=== PATIENT | female | born 1955 | race Hispanic/Latino ===

== ENCOUNTER 2017-10-31 05:54 | Day surgery (SDC) | payer OTHER ==
[2017-09-26 08:29] VITALS: BMI 30.2
[2017-10-31] MEDS ORDERED: ceFAZolin IV 1 gm in Dextrose 1 GM/50 ML BAG IVPB ONE ×2 (07:48→08:19)
[2017-10-31] MEDS ORDERED: Midazolam 2 MG/2 ML VIAL ONE ×2 (07:50→08:07)
[2017-10-31] MEDS ORDERED: Propofol 10 mg/ml Inj (20 ML) ONE (07:51)
[2017-10-31] MEDS ORDERED: Lactated Ringer's 1,000 ML IV ONE ×3 (08:01→09:47)
[2017-10-31] MEDS ORDERED: Lidocaine 2% w Epi 1:100,000 Inj IJ ONE (08:34)
[2017-10-31] MEDS ORDERED: Bupivacaine HCl 0.25% PF (10 ml) Inj ONE (09:18)
[2017-10-31] MEDS ORDERED: Morphine 1 mg/ml preservative-free Inj(Duramorph) ONE (09:19)
[2017-10-31] MEDS ORDERED: MethylPREDNISolone Depo 40 mg/ml Inj ONE (09:19)
[2017-10-31 11:23] VITALS: RESP 16
[2017-10-31 12:22] VITALS: BP 141/70; PULSE 88; TEMP 97.2; O2SAT 99
--- NOTE | 2017-10-31 19:18 | OP ---
PROCEDURE DATE: 10/31/2017 PREOPERATIVE DIAGNOSES: Internal derangement of the left knee, tear of the medial meniscus, and osteochondritis of medial femoral condyle. POSTOPERATIVE DIAGNOSES: 1. Severe grade 3 osteochondritis of the weightbearing portion of medial femoral condyle. 2. Tear of the posterior horn of the medial meniscus. 3. Severe chondromalacia of the patella. PROCEDURES: 1. Diagnostic arthroscopy. 2. Chondroplasty of medial femoral condyle and lateral tibial plateau. 3. Chondroplasty of the patella. 4. Microfracture of the weightbearing portion of the medial femoral condyle. 5. Local anesthesia block with Marcaine and Duramorph. DESCRIPTION OF PROCEDURE: Prior to the procedure, risks and benefits of the surgery, prognosis and complications explained including infection, cardiac, pulmonary, recurrence, need for future surgery, permanent weakness, permanent numbness, possible loss of life and limb, etc. The patient fully understood and agreeable. All the questions were answered. The patient was brought to the operating room and the patient is told that she had evidence of degenerative joint disease of the knee with tear of the medial meniscus. She may need future surgical procedures. She also told that the current procedure may not give her complete relief and she will be needing viscosupplementation and possible partial or total knee replacement, arthroplasty. The patient was brought to the operating room. Left knee was identified as the knee to be operated. Left knee was prepped and draped in the usual manner and the diagnostic arthroscopy was done through the lateral portal. Arthroscope was introduced into the joint and severe grade 3 chondromalacia of the patella was noted towards the medial facet. Chondroplasty was done. Arthroscope was brought to the lateral gutter. No evidence of loose bodies were found. Arthroscope was brought into the medial joint line. Medial meniscus was probed in its entirety. Tear at the posterior horn of the medial meniscus was seen and partial medial meniscectomy was done. Further probing did not reveal any further tearing of the medial meniscus. A severe grade 3 chondromalacia and osteochondritis of the weightbearing portion of the medial femoral condyle was seen. Initial debridement was done with the shaver, then microfracture was done using the chondral picks. blood was seen, found to be emanating from the chondral pick hole. At this point, arthroscope was brought into the intercondylar notch. Anterior cruciate ligament was found to be slightly freed, but intact. Under arthroscopic guidance, the anterior posterior drawer signs were negative. Racahel sign was negative. At this point, using the figure-of-4 position, arthroscope was brought in to the lateral joint line. Lateral meniscus was probed in its entirety and was found to be intact. Grade 2 chondromalacia of the lateral tibial plateau was seen and chondroplasty was done. At this point, the joint was thoroughly irrigated. Arthroscopy portals were closed using 0 nylon suture. Marcaine, Duramorph and Depo-Medrol were injected into the joint. The compression dressing was applied. The patient tolerated the procedure well. Left the operating room to the recovery room in a satisfactory condition. Marina Gaston MD
== END 2017-10-31 12:35 | disposition home or self-care (01) ==
LOC: C.SDS 05:54
PROVIDERS: ATTEND Orthopaedic Surgery
DX: M23.222 Derangement of posterior horn of medial meniscus due to old tear or injury, left knee (principal); M93.962 Osteochondropathy, unspecified, left lower leg; M94.262 Chondromalacia, left knee
CPT/HCPCS: 29880; 97116; 97161; G8978; G8979; G8980; J0171; J0690; J1030; J1100; J1885; J2001; J2250; J2270; J2405; J2704; J3010; J7120

== ENCOUNTER 2018-10-23 05:47 | Day surgery (SDC) | payer OTHER ==
[2018-10-04 08:07] VITALS: BMI 29.7
[2018-10-23] MEDS ORDERED: ceFAZolin 1 gm in NS 1 GM/100 ML BAG IVPB ONE (06:36)
[2018-10-23] MEDS ORDERED: MethylPREDNISolone Depo 40 mg/ml Inj ONE ×2 (06:36→09:29)
[2018-10-23] MEDS ORDERED: Morphine 1 mg/ml preservative-free Inj(Duramorph) ONE (06:37)
[2018-10-23] MEDS ORDERED: Bupivacaine HCl 0.5% PF (30 ml) Inj ONE (06:37)
[2018-10-23] MEDS ORDERED: Lidocaine/Epinephrine 1% 1:100000 10 ML IJ ONE (06:37)
[2018-10-23] MEDS ORDERED: EPINEPHrine 1:1000 Nasal Sol(30mL) ONE (07:42)
--- NOTE | 2018-10-23 07:47 | CP.SDSHP ---
Same Day Surgery H & P - History Proposed Procedure: Right knee arthroscopy possible partial meniscectomy, chondroplasty, synovectomy related procedures Pre-Op Diagnosis: Right knee medial meniscal tear, chondromalacia - Previous Medical/Surgical History Endocrine/Metabolic: Thyroid Disease Previous Surgical History: Left knee arthroscopy x 2, breast biopsy, c section x2 - Allergies Allergies: Allergies No Known Allergies Allergy (Verified 10/04/18 08:05) - Physical Exam Vital Signs: Vital Signs 10/23/18 06:08 Temperature 98 F Pulse Rate 83 Respiratory 18 Rate Blood Pressure 148/81 O2 Sat by Pulse 99 Oximetry Mental Status: Alert & Oriented x3 Heart: WNL Lungs: WNL GI: WNL - {Optional Preform as Required} Ortho: Other (+ROM ankle/toes, sensation intact, TTP to knee mild, no effusion) Other Pertinent Findings: atient Name / ID : PRINCE South / [id number]. Exam Date : 08/11/2018 11:02:53 ( Approved ). Study Comment : Sex / Age : F / 63Y. Creator : Mikayla Yung. Dictator : Shade Caceres MD. Home Advisor : Treasury Analyst : Shade Caceres MD. Approver2 : Report Date : 08/11/2018 11:26:33. My Comment : . Date of service: 08/11/2018. PROCEDURE: MRI Right Knee. HISTORY: Pain. COMPARISON: None available. TECHNIQUE: Multiecho multiplanar sequences were performed through the right knee. FINDINGS: ANTERIOR CRUCIATE LIGAMENT:: No acute tear identified. POSTERIOR CRUCIATE LIGAMENT:: No acute tear identified. MEDIAL MENISCUS:: Limited full-thickness tear anteromedial portion of the medial meniscus. LATERAL MENISCUS:: No articular tear or significant degenerative pattern within the body or anterior/posterior horns. MEDIAL COLLATERAL LIGAMENT:: Intact without acute tear. LATERAL COLLATERAL LIGAMENT COMPLEX:: Intact without acute tear. QUADRICEPS TENDON:: Trace distal tendinosis. No acute tear appreciated. PATELLAR TENDON:: Unremarkable appearing. CARTILAGE:: Moderate to severe medial lateral femorotibial compartment chondromalacia with severe patellofemoral chondromalacia. Subchondral edema is appreciated at the lateral portion of the lateral femoral condyle as well as at the upper portion of the patella. JOINT FLUID:: No significant joint effusion appreciated throughout. OSSEOUS STRUCTURES:: Small bone contusion superomedial patella. OTHER FINDINGS: None. IMPRESSION: 1. Medial meniscal tear. 2. Trace distal quadriceps tendinosis. 3. Advanced osteoarthritis, tricompartmental seen worst at the patellofemoral articulation with related subchondral edema at the patella. Lateral femorotibial compartment is next greatest affected. 4. Small bone contusion superomedial patella. - Impression Impression: 63F with right knee meniscal tear for arthroscopy Pt. Evaluated Today:Candidate for Anesthesia & Procedure: Yes - Date & Time Date: 10/23/18 Time: 07:50 Short Stay Discharge - Short Stay Discharge Admitting Diagnosis/Reason for Visit: INTERNAL DERANGEMENT RIGHT KNEE Disposition: HOME/ ROUTINE Past Patient History - Past Medical History & Family History Past Medical History?: Yes - Past Social History Smoking Status: Never Smoked - CARDIAC Hx Cardiac Disorders: Yes Hx Hypertension: Yes - PULMONARY Hx Respiratory Disorders: Yes Hx Bronchitis: Yes (2016-NOT HOSPITALIZED) - NEUROLOGICAL Hx Neurological Disorder: No - HEENT Hx HEENT Problems: Yes Hx Sinusitis: Yes Other/Comment: 09/22/17-SINUS INFECTION-PT. ON ANTIBIOTIC X 15 DAYS. - RENAL Hx Chronic Kidney Disease: No - ENDOCRINE/METABOLIC Hx Endocrine Disorders: Yes Hx Hypothyroidism: Yes - HEMATOLOGICAL/ONCOLOGICAL Hx Blood Disorders: No - INTEGUMENTARY Hx Dermatological Problems: Yes Other/Comment: HX: ROSACEA - MUSCULOSKELETAL/RHEUMATOLOGICAL Hx Musculoskeletal Disorders: Yes Hx Osteoarthritis: Yes Other/Comment: HX: "PINCHED NERVES IN NECK". HX: RIGHT SHOULDER BURSITIS. HX: LEFT KNEE ARTHROSCOPY"CLEANED IT OUT" 2003. HX: SCIATICA-LEFT SIDE - GASTROINTESTINAL Hx Gastrointestinal Disorders: Yes Hx Gastritis: Yes Hx Irritable Bowel: Yes Other/Comment: HX: HIATAL HERNIA. HX: IBS - GENITOURINARY/GYNECOLOGICAL Hx Genitourinary Disorders: No - PSYCHIATRIC Hx Psychophysiologic Disorder: Yes Hx Anxiety: Yes - SURGICAL HISTORY Hx Surgeries: Yes Hx Arthroscopy: Yes (LEFT KNEE 2003) Hx Breast Biopsy: Yes (X3- NO CANCER) Hx Section: Yes (x2) Hx Dilation and Curettage: Yes (2009) Other/Comment: HX: COLON POLYPECTOMY - ANESTHESIA Hx Anesthesia: Yes Hx Anesthesia Reactions: No Hx Malignant Hyperthermia: No Has any member of the family had a problem w/ anesthesia?: No
[2018-10-23] MEDS ORDERED: Propofol 10 mg/ml Inj (20 ML) ONE (07:58)
[2018-10-23] MEDS ORDERED: Midazolam 2 MG/2 ML VIAL ONE (07:58)
[2018-10-23] MEDS ORDERED: ceFAZolin 1 gm FROZEN Premix 1 GM/50 ML ML IVPB ONE (08:32)
[2018-10-23] MEDS ORDERED: Neostigmine Methylsulfate 3mg/3ml Syringe IV ONE (09:48)
[2018-10-23] MEDS ORDERED: Oxycodone/Acetaminophen 5/325 mg Tab PO PRN (10:03)
--- NOTE | 2018-10-23 10:06 | PCM.SURG1 ---
Surgeon's Initial Post Op Note - Surgeon's Notes Surgeon: Gonzalo Gaston MD Electric Appliance Installer: Gómez Moralez PA-C Type of Anesthesia: General Endo Anesthesia Administered By: Dr. Ambriz Pre-Operative Diagnosis: Right knee medial meniscal tear, chondromalacia Operative Findings: tourniquet not inflated Post-Operative Diagnosis: same Operation Performed: Right knee arthroscopy partial medial meniscectomy, chondroplasty, synovectomy, intraarticular injection Specimen/Specimens Removed: none Estimated Blood Loss: EBL {In ML}: 2 Blood Products Given: N/A Drains Used: No Drains Post-Op Condition: Fair Date of Surgery/Procedure: 10/23/18 Time of Surgery/Procedure: 10:08 (pre and post op palpable DP/PT pulses)
[2018-10-23] MEDS ORDERED: Lactated Ringer's 1,000 ML IV SCH (10:15)
[2018-10-23] MEDS: HYDROmorphone 0.5 mg/0.5 ml ISec IVP PRN ×2 (10:35→10:55)
[2018-10-23] MEDS ORDERED: Lactated Ringer's 500 ML IV ONE (10:50)
[2018-10-23 12:13] VITALS: RESP 16
[2018-10-23 14:21] VITALS: BP 110/68; PULSE 59; TEMP 97.7; O2SAT 97
--- NOTE | 2018-10-24 07:57 | OP ---
PROCEDURE DATE: 10/23/2018 PREOPERATIVE DIAGNOSIS: Internal derangement of the right knee. POSTOPERATIVE DIAGNOSES: 1. Complex tear of the posterior horn of the medial meniscus. 2. Severe grade 3 chondromalacia of the medial femoral condyle. 3. Grade 3 chondromalacia of the patella and hypertropic synovitis. DESCRIPTION OF PROCEDURE: Prior to the procedure, risks and benefits of the surgery, prognosis and complications were explained including infection, cardiac, pulmonary, recurrence, need for future surgery, permanent weakness, permanent numbness, possible loss of life and limb etc,. were discussed. The patient fully understood and all the questions were answered. Please note that preoperatively, the dorsalis pedis and the posterior tibial pulses were palpable. The capillary refilling was apparent. At the end of the procedure, the dorsalis pedis and posterior tibial pulses were palpable. The patient was brought to the operating room. The right knee was identified as the knee to be operated. The right knee was prepped and draped in the usual manner. Initially, the arthroscopic examination was done through standard lateral portal. The arthroscope was introduced into the suprapatellar pouch. Grade 3 chondromalacia of the patella with extensive loss of the cartilage lining was noted with subchondral bone exposed. Moderate chondroplasty was done. Arthroscope was brought to the lateral gutter. No evidence of loose bodies was found. Then, the arthroscope was brought to the medial joint line. Grade 3 chondromalacia of the medial femoral condyle was noted. A complex tear of the posterior horn of the medial meniscus was noted. Chondroplasty of medial femoral condyle was done and partial medial meniscectomy was done using shaver, blunt and sharp instruments. Probing at the end of the procedure did not reveal any further tearing of the medial meniscus. Attention was directed to the intercondylar notch. Anterior cruciate ligament was found to be intact and competent. An arthroscope was introduced into the lateral joint line and a [id number] position was used. The patient had an intact lateral meniscus with mild fraying of the anterior horn of the lateral meniscus. Shaver was used to do partial lateral meniscectomy. Rest of the lateral compartment looked normal. At this point, the joint was thoroughly irrigated. Marcaine, Duramorph and Depo-Medrol were injected into the joint. Please note that at the beginning of the procedure, the medial and lateral arthroscopic portals were injected with 0.5% Marcaine. The last part of the procedure was partial lateral meniscectomy. The patient tolerated the procedure well. Compression dressing was applied. The patient left the operating room to the recovery room in a satisfactory condition. Marina Gaston MD
== END 2018-10-23 13:23 | disposition home or self-care (01) ==
LOC: C.SDS 05:47
PROVIDERS: ATTEND Orthopaedic Surgery
DX: M23.91 Unspecified internal derangement of right knee (principal); S83.241A Other tear of medial meniscus, current injury, right knee, initial encounter
CPT/HCPCS: 29880; 97116; 97161; G8978; G8979; G8980; J0690; J1030; J1170; J2250; J2270; J2405; J2704; J2710; J3010; J7120

== ENCOUNTER 2019-02-28 10:49 | Emergency (ER) | payer OTHER ==
[2019-02-28 10:55] VITALS: BMI 30.2
--- NOTE | 2019-02-28 11:27 | C.PDOC ---
History Of Present Illness 63 year old female presents to ED with complaint of headache prior to arrival that has since resolved. Patient experienced headache while working on computer. Patient describes the headache as generalized. Patient has a history of chronic neck pain and takes NSAIDs as needed. Patient is complaint with her medication. She currently complains of feeling anxious. She denies loss of consciousness, nausea, vomiting, focal weakness, or numbness. 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 ONSET WHILE WORKING ON COMPUTER. GENERALIZED. HO CHRONIC NECK PAIN, TAKES NSAIDS PRN. DENIES LOC, NV, FOCAL WEAK/NUMB. HO HTN, COMPLIANT W MEDS. CURRENTLY CO FEELING ANXIOUS EXAM NAD NECK SUPPLE NONTEND BACK +TENSION B/L UPPER BACK NO TEND PSYCH ANXIOUS BUT CALM COOPERATIVE NEURO INTACT NO FOCAL DEF REMAINDER NEG MDM WEISS HO CHRONIC NECK PAIN, ANXIETY. PT OFFERED CT, DOES NOT WISH AT THIS TIME. PT REQUESTS ANXIETY TX ONLY AT THIS TIME Time Seen by Provider: 02/28/19 11:11 Chief Complaint (Nursing): Headache History Per: Patient History/Exam Limitations: no limitations Onset/Duration Of Symptoms: Hrs Current Symptoms Are (Timing): Gone Quality: Aching Preceeding Symptoms: denies: Visual Disturbances Associated Symptoms: denies: Blurred Vision, Nausea, Vomiting, Extremity Weakness Past Medical History Reviewed: Historical Data, Nursing Documentation, Vital Signs Vital Signs: Last Vital Signs Temp 99.7 F H 02/28/19 10:56 Pulse 84 02/28/19 10:56 Resp 20 02/28/19 10:56 BP 160/85 H 02/28/19 10:56 Pulse Ox 100 02/28/19 10:56 Primary Care Provider: Shade Benton - Medical History PMH: Anxiety, Bronchitis (2016-NOT HOSPITALIZED), Colonic Polyps, Gastritis, HTN, Hypothyroidism Denies: Chronic Kidney Disease Surgical History: No Surg Hx - [facility] TETANUS TOXOID ADMINIST (07/25/14) Family History: States: Unknown Family Hx - Social History Hx Tobacco Use: No Hx Alcohol Use: No Hx Substance Use: No - Immunization History Hx Tetanus Toxoid Vaccination: No Hx Influenza Vaccination: Yes Hx Pneumococcal Vaccination: No Review Of Systems Except As Marked, All Systems Reviewed And Found Negative. Musculoskeletal: Positive for: Neck Pain (chronic) Neurological: Positive for: Headache Physical Exam - Physical Exam Appears: Well, Non-toxic, No Acute Distress Skin: Normal Color, Warm, Dry Head: Atraumatic, Normacephalic Eye(s): bilateral: Normal Inspection (no photophobia), PERRL, EOMI Neck: Normal ROM, No Midline Cervical Tenderness, No Paracervical Tenderness, Supple Chest: Symmetrical, No Deformity Cardiovascular: Rhythm Regular, No Murmur Respiratory: No Accessory Muscle Use, No Rales, No Rhonchi, No Wheezing Gastrointestinal/Abdominal: Soft, No Tenderness Back: No Vertebral Tenderness, No Paraspinal Tenderness, Other (+tension to the bilateral upper back) Extremity: Capillary Refill (<2 seconds) Extremity: Bilateral: Atraumatic, Normal Color And Temperature, Normal ROM Pulses: Left Radial: Normal, Right Radial: Normal Neurological/Psych: Oriented x3, Normal Speech, Normal Cognition, Normal Motor, Normal Sensation, Other (anxious, but calm and cooperative) Gait: Steady ED Course And Treatment O2 Sat by Pulse Oximetry: 100 (in RA) Pulse Ox Interpretation: Normal Progress Note: Glucose POC ordered. Patient given Xanax. Medical Decision Making Medical Decision Making: Headache with history of neck pain and anxiety. Patient offered CT, does not wish for CT at this time. Patient requests anxiety treatment only at this time. Disposition Counseled Patient/Family Regarding: Diagnosis, Need For Followup - Disposition Referrals: YOUR,PMD [Other] Disposition: HOME/ ROUTINE Disposition Time: 12:00 Condition: IMPROVED Additional Instructions: YOU HAVE BEEN OFFERED A HEAD CT AND PAIN MEDICINE BUT HAVE REFUSED. FOLLOW UP WITH YOUR PMD, RETURN IF WORSENING SYMPTOMS. Instructions: Headache, Adult (DC) Forms: [facility] (Tunisian), Work Excuse - Clinical Impression Clinical Impression: Headache - Scribe Statement The provider has reviewed the documentation as recorded by the Scribe (Monica Carrillo) All medical record entries made by the Scribe were at my direction and personally dictated by me. I have reviewed the chart and agree that the record accurately reflects my personal performance of the history, physical exam, medical decision making, and the department course for this patient. I have also personally directed, reviewed, and agree with the discharge instructions and disposition.
[2019-02-28 11:50] VITALS: BP 144/80; PULSE 77; RESP 17; TEMP 98.2
[2019-02-28 11:55] VITALS: O2SAT 100
== END 2019-02-28 11:49 | disposition home or self-care (01) ==
LOC: C.ER 10:49
DX: R51 Headache (principal)